=== PATIENT | female | born 1995 | race Caucasian/White ===

== ENCOUNTER 2022-03-29 06:36 | Observation (INO) | payer OTHER, SELFPAY ==
[2022-03-29] VITALS (22 sets, daily range): BP systolic 103–140; BP diastolic 53–87; PULSE 65–99; RESP 11–26; TEMP 36.1–36.8; O2SAT 91–100; BMI 46.7
--- NOTE | 2022-03-29 | PATH_ITS ---
[facility] Accession Number: [id number] . 01 Material submitted: . gallbladder - GALLBLADDER . 02 Diagnosis: Gallbladder, Cholecystectomy: Chronic cholecystitis, cholesterolosis, and cholelithiasis. The cystic duct is blocked by fragments of gallstone at gross examination. MRV 04/01/2022 1045 Local . 02 Electronically signed: . Ashia Roman MD, Pathologist NPI- [id number] . 01 Gross description: . The specimen is received in formalin, labeled gallbladder, and consists of an intact gallbladder measuring 7.1 x 3.2 x 2.5 cm, with an average wall thickness of 0.2 cm. The hepatic bed (inked blue) and serosal surfaces are intact and grossly unremarkable. The cystic duct measures 0.4 cm in diameter and, upon opening, is blocked by an aggregate of yellow bosselated calculi measuring 5.0 x 3.2 x 0.7 cm in aggregate. Also noted upon opening is a moderate amount of markedly viscous bile and hemorrhagic to bile-stained mucosa that exhibits pale yellow stippling. The specimen is representatively submitted as follows: . A1: Fundus, neck, and body with cystic duct margin en face. ([id number]) /MRV 03/30/2022 1316 Local . 02 Pathologist provided ICD-10: K81.1 . 02 CPT . 763124 Specimen Comment: A courtesy copy of this report has been sent to [phone] Performed at: 01 [facility] [address] [id number] MD Nicholas Mary MD Phone: [phone] Performed at: 02 [facility] [address] [place] [id number] MD Suad Ramos MD Phone: [phone]
--- NOTE | 2022-03-29 06:41 | ED_ITS ---
HPI - Abdominal Pain <Alphonse Marroquin DO - Last Filed: 04/01/22 07:42> General Chief Complaint: Abdominal Pain Stated Complaint: gall bladder issues Time Seen by Provider: 03/29/22 06:40 History of Present Illness HPI narrative: 26-year-old female nonsmoker with history of prediabetes, polycystic ovarian syndrome and known gallbladder disease with a scheduled elective cholecystectomy at the end of the month presents with a chief complaint of severe right upper quadrant pain with radiation to the back. She states she went to bed in her normal state of health and awoke noting the significant pain. She has nausea but denies any vomiting. She states her pain is worse with motion and improves with rest. She has been NPO since dinner last night. She is not dizzy nor weak or lightheaded. She denies any chest pain or shortness of breath. Related Data Home Medications Medication Instructions Recorded Confirmed ibuprofen 800 mg tablet 800 mg PO TID PRN Pain (Scale 03/29/22 04/01/22 Score 1-3) Previous Rx's Medication Instructions Recorded hydrocodone 5 mg-acetaminophen 325 1 tab PO Q8H PRN pain #10 tabs 03/30/22 mg tablet fluconazole 150 mg tablet 150 mg PO Q3D 2 doses #2 tabs 04/11/22 Allergies Allergy/AdvReac Type Severity Reaction Status Date / Time egg Allergy Severe Anaphylaxis Verified 04/01/22 09:10 scallops Allergy Verified 04/01/22 09:10 morphine AdvReac Intermediate Vomiting Verified 04/01/22 09:10 Review of Systems <DO Stormy Hurtado Last Filed: 04/01/22 07:42> Review of Systems Narrative: GENERAL: Denies chills, fatigue, malaise, fever, sweats. HEENT: Denies sinus pain, ear pain, sore throat, difficulty swallowing, dizziness. RESPIRATORY: Denies dyspnea, cough, wheezing, hemoptysis, sputum. CARDIOVASCULAR: Denies chest pain, palpitations, orthopnea, edema, GASTROINTESTINAL: See HPI : Denies dysuria, frequency, incontinence, hematuria, urinary retention. MUSCULOSKELETAL: denies weakness, joint pain, or bony pain SKIN: Denies rash, skin lesions, or other NEUROLOGIC: Denies weakness, headache, numbness, change in speech, confusion, seizures, incoordination. PSYCHIATRIC: No concerning psychosocial issues. 12 point review of systems is negative except for those stated above Patient History <Alphonse Marroquin DO - Last Filed: 04/01/22 07:42> Medical History Anxiety Chalazion of left eyelid Dermatofibroma of left upper extremity Morbid obesity with BMI of 45.0-49.9, adult Surgical History History of appendectomy History of hysterectomy Social History household members: spouse and children Smoking Status: Never smoker Exam <Alphonse Marroquin DO - Last Filed: 04/01/22 07:42> Narrative Exam Narrative: GENERAL: [26] year old patient appears stated age. Well-developed patient, in mild distress. HEAD: Atraumatic. Normocephalic. EYES: Pupils equal round and reactive. Extraocular motions intact. No scleral icterus. No injection or drainage. ENT: Nose without bleeding, purulent drainage. Throat without erythema, tonsillar hypertrophy or exudate. Airway patent. NECK: Trachea midline. Non tender CARDIOVASCULAR: Regular rate and rhythm without murmurs, gallops, or rubs. RESPIRATORY: Clear to auscultation. Breath sounds equal bilaterally. No wheezes, rales, or rhonchi. GASTROINTESTINAL: Abdomen soft, severe tenderness in the right upper quadrant with localized guarding nondistended. EXTREMITIES: No edema or joint tenderness. BACK: Nontender without deformity or crepitance. No flank tenderness. NEURO: AOx3. SKIN: No rash or erythema of visible areas Initial Vital Signs Initial Vital Signs: Vital Signs Temperature 97.4 F L 03/29/22 06:43 Pulse Rate 97 H 03/29/22 06:43 Respiratory Rate 03/29/22 06:43 Blood Pressure 133/76 03/29/22 06:43 Pulse Oximetry 99 03/29/22 06:43 Oxygen Delivery Method 03/29/22 06:43 <Akash Lechuga MD - Last Filed: 05/06/22 01:22> Initial Vital Signs Initial Vital Signs: Vital Signs Temperature 97.4 F L 03/29/22 06:43 Pulse Rate 97 H 03/29/22 06:43 Respiratory Rate 03/29/22 06:43 Blood Pressure 133/76 03/29/22 06:43 Pulse Oximetry 99 03/29/22 06:43 Oxygen Delivery Method 03/29/22 06:43 Course <Alphonse Marroquin DO - Last Filed: 04/01/22 07:42> Orders Ordered: Discontinued Medications Acetaminophen (Acetaminophen 325 Mg Tablet) 975 mg PO NOW ONE Stop: 03/29/22 09:59 Last Admin: 03/29/22 14:24 Dose: 975 mg Documented By: IF Hydrocodone Bitart/Acetaminophen (Hydrocodone/Acet 5/325 Tablet) 1 tab PO Q4HR PRN PRN Reason: Pain, Moderate (4-6) Last Admin: 03/30/22 13:19 Dose: 1 tab Documented By: Admin: 03/30/22 09:25 Dose: 1 tab Documented By: JENNIFER Bupivacaine HCl (Bupivacaine 0.5% (Pf) Vial) 30 ml INJ NOW ONE Stop: 03/29/22 16:14 Last Admin: 03/29/22 16:13 Dose: 30 ml Documented By: Cefazolin Sodium/Dextrose (Cefazolin 2 Gm/20 Ml Syringe) 3 gm IV NOW ONE Stop: 03/29/22 15:01 Last Admin: 03/29/22 15:48 Dose: 3 gm Documented By: REGLA Fentanyl (Fentanyl 100 Mcg/2 Ml Inj) 0 mcg IV Q5MIN PRN PRN Reason: Pain, Severe (7-10) Last Admin: 03/29/22 17:23 Dose: 25 mcg Documented By: Admin: 03/29/22 17:13 Dose: 25 mcg Documented By: PORFIRIO Gabapentin (Gabapentin 300 Mg Capsule) 300 mg PO NOW ONE Stop: 03/29/22 09:59 Last Admin: 03/29/22 14:30 Dose: 300 mg Documented By: VANESSA Hydromorphone HCl (Hydromorphone 0.5 Mg Inj) 0.5 mg IV NOW ONE Stop: 03/29/22 06:46 Last Admin: 03/29/22 06:54 Dose: 0.5 mg Documented By: KARISSA Hydromorphone HCl (Hydromorphone 0.5 Mg Inj) 0.5 mg IV Q4H PRN PRN Reason: Breakthrough pain only (8-10) Last Admin: 03/30/22 03:05 Dose: 0.5 mg Documented By: Admin: 03/29/22 23:06 Dose: 0.5 mg Documented By: Admin: 03/29/22 18:43 Dose: 0.5 mg Documented By: KETTY Lactated Ringer's (Lactated Ringers) 1,000 mls @ 1,000 mls/hr IV BOLUS ONE Stop: 03/29/22 07:44 Last Infusion: 03/29/22 14:04 Dose: 0 mls/hr Documented By: Admin: 03/29/22 06:55 Dose: 1,000 mls/hr Documented By: KARISSA Lactated Ringer's (Lactated Ringers) 1,000 mls @ 42 mls/hr IV CONT VIK Last Infusion: 03/29/22 18:02 Dose: 0 mls/hr Documented By: Admin: 03/29/22 14:56 Dose: 42 mls/hr Documented By: VANESSA Lactated Ringer's (Lactated Ringers) 1,000 mls @ 120 mls/hr IV CONT VIK Last Admin: 03/30/22 07:42 Dose: Not Given Documented By: JENNIFER Lidocaine/Epinephrine (Lidocaine 1% W/Epi) 20 ml INJ NOW ONE Stop: 03/29/22 16:13 Last Admin: 03/29/22 16:13 Dose: 20 ml Documented By: Meperidine HCl (Meperidine 50 Mg/Ml Inj) 12.5 mg IV PACUNOW PRN PRN Reason: Mild pain or shivering Naloxone HCl (Naloxone 0.4 Mg/Ml Vial) 0.2 mg IV Q2MIN PRN PRN Reason: Opiate Reversal Ondansetron HCl (Ondansetron 4 Mg/2 Ml Inj) 4 mg IV NOW ONE Stop: 03/29/22 06:46 Last Admin: 03/29/22 06:54 Dose: 4 mg Documented By: KARISSA Ondansetron HCl (Ondansetron 4 Mg/2 Ml Inj) 4 mg IV NOW PRN PRN Reason: Nausea And Vomiting Ondansetron HCl (Ondansetron 4 Mg/2 Ml Inj) 4 mg IV Q8HR PRN PRN Reason: Nausea And Vomiting Oxycodone HCl (Oxycodone Ir 5 Mg Tablet) 5 mg PO PACUNOW PRN PRN Reason: Mild or moderate pain Last Admin: 03/29/22 17:44 Dose: 5 mg Documented By: SB Scopolamine (Scopolamine 1 Patch) 1 patch TOP NOW ONE Stop: 03/29/22 09:59 Last Admin: 03/29/22 14:30 Dose: 1 patch Documented By: IF Vital Signs Vital signs: Vital Signs - 8 hr 03/29/22 06:43 Temperature 97.4 F L Pulse Rate 97 H Respiratory Rate 22 Blood Pressure 133/76 Pulse Oximetry 99 <Akash Lechuga MD - Last Filed: 05/06/22 01:22> Course Course Narrative: 7:00 a.m.. Sign out from Dr. Marroquin, patient surgeon, Dr. Matias, will be seeing patient in the department for evaluation and disposition Orders Ordered: Discontinued Medications Acetaminophen (Acetaminophen 325 Mg Tablet) 975 mg PO NOW ONE Stop: 03/29/22 09:59 Last Admin: 03/29/22 14:24 Dose: 975 mg Documented By: IF Hydrocodone Bitart/Acetaminophen (Hydrocodone/Acet 5/325 Tablet) 1 tab PO Q4HR PRN PRN Reason: Pain, Moderate (4-6) Last Admin: 03/30/22 13:19 Dose: 1 tab Documented By: Admin: 03/30/22 09:25 Dose: 1 tab Documented By: JENNIFER Bupivacaine HCl (Bupivacaine 0.5% (Pf) Vial) 30 ml INJ NOW ONE Stop: 03/29/22 16:14 Last Admin: 03/29/22 16:13 Dose: 30 ml Documented By: Cefazolin Sodium/Dextrose (Cefazolin 2 Gm/20 Ml Syringe) 3 gm IV NOW ONE Stop: 03/29/22 15:01 Last Admin: 03/29/22 15:48 Dose: 3 gm Documented By: REGLA Fentanyl (Fentanyl 100 Mcg/2 Ml Inj) 0 mcg IV Q5MIN PRN PRN Reason: Pain, Severe (7-10) Last Admin: 03/29/22 17:23 Dose: 25 mcg Documented By: Admin: 03/29/22 17:13 Dose: 25 mcg Documented By: PORFIRIO Gabapentin (Gabapentin 300 Mg Capsule) 300 mg PO NOW ONE Stop: 03/29/22 09:59 Last Admin: 03/29/22 14:30 Dose: 300 mg Documented By: IF Hydromorphone HCl (Hydromorphone 0.5 Mg Inj) 0.5 mg IV NOW ONE Stop: 03/29/22 06:46 Last Admin: 03/29/22 06:54 Dose: 0.5 mg Documented By: KARISSA Hydromorphone HCl (Hydromorphone 0.5 Mg Inj) 0.5 mg IV Q4H PRN PRN Reason: Breakthrough pain only (8-10) Last Admin: 03/30/22 03:05 Dose: 0.5 mg Documented By: Admin: 03/29/22 23:06 Dose: 0.5 mg Documented By: Admin: 03/29/22 18:43 Dose: 0.5 mg Documented By: KETTY Lactated Ringer's (Lactated Ringers) 1,000 mls @ 1,000 mls/hr IV BOLUS ONE Stop: 03/29/22 07:44 Last Infusion: 03/29/22 14:04 Dose: 0 mls/hr Documented By: Admin: 03/29/22 06:55 Dose: 1,000 mls/hr Documented By: KARISSA Lactated Ringer's (Lactated Ringers) 1,000 mls @ 42 mls/hr IV CONT VIK Last Infusion: 03/29/22 18:02 Dose: 0 mls/hr Documented By: Admin: 03/29/22 14:56 Dose: 42 mls/hr Documented By: VANESSA Lactated Ringer's (Lactated Ringers) 1,000 mls @ 120 mls/hr IV CONT [facility] Last Admin: 03/30/22 07:42 Dose: Not Given Documented By: JENNIFER Lidocaine/Epinephrine (Lidocaine 1% W/Epi) 20 ml INJ NOW ONE Stop: 03/29/22 16:13 Last Admin: 03/29/22 16:13 Dose: 20 ml Documented By: Meperidine HCl (Meperidine 50 Mg/Ml Inj) 12.5 mg IV PACUNOW PRN PRN Reason: Mild pain or shivering Naloxone HCl (Naloxone 0.4 Mg/Ml Vial) 0.2 mg IV Q2MIN PRN PRN Reason: Opiate Reversal Ondansetron HCl (Ondansetron 4 Mg/2 Ml Inj) 4 mg IV NOW ONE Stop: 03/29/22 06:46 Last Admin: 03/29/22 06:54 Dose: 4 mg Documented By: KARISSA Ondansetron HCl (Ondansetron 4 Mg/2 Ml Inj) 4 mg IV NOW PRN PRN Reason: Nausea And Vomiting Ondansetron HCl (Ondansetron 4 Mg/2 Ml Inj) 4 mg IV Q8HR PRN PRN Reason: Nausea And Vomiting Oxycodone HCl (Oxycodone Ir 5 Mg Tablet) 5 mg PO PACUNOW PRN PRN Reason: Mild or moderate pain Last Admin: 03/29/22 17:44 Dose: 5 mg Documented By: SB Scopolamine (Scopolamine 1 Patch) 1 patch TOP NOW ONE Stop: 03/29/22 09:59 Last Admin: 03/29/22 14:30 Dose: 1 patch Documented By: IF Consultations Consultation #1: Dr. Matias and is scheduling patient has at on for OR today. Has accepted patient Time: 08:19 Vital Signs Vital signs: Vital Signs - 8 hr 03/29/22 06:43 Temperature 97.4 F L Pulse Rate 97 H Respiratory Rate 22 Blood Pressure 133/76 Pulse Oximetry 99 MDM - Abdominal Pain <Alphonse Marroquin DO - Last Filed: 04/01/22 07:42> Lab Data Result diagrams: 03/29/22 06:45 03/29/22 06:45 Labs: Lab Results 03/29/22 03/29/22 03/29/22 Range/Units 06:45 06:45 07:20 WBC 6.7 (4.5-11.0) X10^3/uL RBC 4.47 (4.0-5.2) X10^6/uL Hgb 12.0 (12.0-16.0) g/dL Hct 35.9 L (36-46) % MCV 80.2 (80-100) fL MCH 26.8 (26-34) PG MCHC 33.5 (30-36) % RDW 15.2 H (11.6-14.8) % Plt Count 345 (150-400) X10^3/uL Neut % (Auto) 59.6 (50-75) % Lymph % (Auto) 30.8 (25-40) % Burnett % (Auto) 6.5 (3-14) % Eos % (Auto) 2.5 (2-4) % Baso % (Auto) 0.6 (0-2) % Neut # (Auto) 4000 (7561-4271) /uL Lymph # (Auto) 2100 (3730-0946) /uL Burnett # (Auto) 400 (0-900) /uL Eos # (Auto) 200 (0-450) /uL Baso # (Auto) 0 (0-100) /uL Sodium 139 (137-145) mmol/L Potassium 4.0 (3.4-5.1) mmol/L Chloride 104 (98-107) mmol/L Carbon Dioxide 29 (22-32) mmol/L BUN 10 (7-17) mg/dL Creatinine 0.71 (0.52-1.04) mg/dL Estimated GFR > 60 (>60) mL/min BUN/Creatinine Ratio 14.1 (6-22) Glucose 118 H (70-100) mg/dL Calcium 8.9 (8.4-10.2) mg/dL Total Bilirubin 0.2 (0.2-1.3) mg/dL AST 19 (14-36) IU/L ALT 18 (<35) IU/L Alkaline Phosphatase 47 (38-126) U/L Total Protein 6.9 (6.3-8.2) g/dL Albumin 3.9 (3.5-5.0) g/dL Globulin 3.0 (1.7-4.1) g/dL Albumin/Globulin Ratio 1.3 (1.0-2.8) SARS-CoV-2 (PCR) Negative (Negative) <Akash Lechuga MD - Last Filed: 05/06/22 01:22> Differential Diagnosis Differential diagnosis: Likely abdominal pain, constipation, pancreatitis, small bowel obstruction and other (Cholelithiasis/cholecystitis) Lab Data Labs: Lab Results 03/29/22 03/29/22 03/29/22 Range/Units 06:45 06:45 07:20 WBC 6.7 (4.5-11.0) X10^3/uL RBC 4.47 (4.0-5.2) X10^6/uL Hgb 12.0 (12.0-16.0) g/dL Hct 35.9 L (36-46) % MCV 80.2 (80-100) fL MCH 26.8 (26-34) PG MCHC 33.5 (30-36) % RDW 15.2 H (11.6-14.8) % Plt Count 345 (150-400) X10^3/uL Neut % (Auto) 59.6 (50-75) % Lymph % (Auto) 30.8 (25-40) % Burnett % (Auto) 6.5 (3-14) % Eos % (Auto) 2.5 (2-4) % Baso % (Auto) 0.6 (0-2) % Neut # (Auto) 4000 (8637-2612) /uL Lymph # (Auto) 2100 (7905-9778) /uL Burnett # (Auto) 400 (0-900) /uL Eos # (Auto) 200 (0-450) /uL Baso # (Auto) 0 (0-100) /uL Sodium 139 (137-145) mmol/L Potassium 4.0 (3.4-5.1) mmol/L Chloride 104 (98-107) mmol/L Carbon Dioxide 29 (22-32) mmol/L BUN 10 (7-17) mg/dL Creatinine 0.71 (0.52-1.04) mg/dL Estimated GFR > 60 (>60) mL/min BUN/Creatinine Ratio 14.1 (6-22) Glucose 118 H (70-100) mg/dL Calcium 8.9 (8.4-10.2) mg/dL Total Bilirubin 0.2 (0.2-1.3) mg/dL AST 19 (14-36) IU/L ALT 18 (<35) IU/L Alkaline Phosphatase 47 (38-126) U/L Total Protein 6.9 (6.3-8.2) g/dL Albumin 3.9 (3.5-5.0) g/dL Globulin 3.0 (1.7-4.1) g/dL Albumin/Globulin Ratio 1.3 (1.0-2.8) SARS-CoV-2 (PCR) Negative (Negative) Imaging Data US - abdomen: Radiologist's Impression: [address] [address] Ultrasound Report Signed Patient: Ana Garner MR#: [id number] : 1995 Acct:[id number] Age/Sex: 26 / F Date of Service: 03/29/22 Loc: ED Accession Number: [id number] ?? Procedure: US abdomen limited Ordering Provider: Alphonse Marroquin D.O. PROCEDURE: US ABDOMEN LIMITED ? INDICATIONS:? RUQ PAIN; KNOWN GALLSTONES ? TECHNIQUE:? Real-time focused scanning was performed of the abdomen, with image documentation.? ? COMPARISON:? None. ? FINDINGS:? ? Multiple small gallstones noted.? Gallbladder wall thickness is normal measuring 1.6 millimeters.? No pericholecystic fluid.? No sonographic Milner sign. ? Biliary tree is nondilated.? Common bile duct measures 5.7 millimeters. ? Pancreas is obscured by bowel gas and cannot be evaluated. ? IMPRESSION:? Cholelithiasis without sonographic evidence of cholecystitis. If there is continued clinical concern for cholecystitis, a nuclear medicine HIDA scan should be considered for further evaluation. ? ? ? Dictated by: Beatriz Santiago MD, PhD on 03/29/2022 at 7:19 ? ? Approved by: Beatriz Santiago MD, PhD on 03/29/2022 at 7:20 ? MDM Narrative Medical decision making narrative: Appropriate for admission for surgical evaluation/intervention Discharge Plan Departure Patient Disposition: Admitted as Observation Clinical Impression: Gallstones, Symptomatic cholelithiasis Admit Date/Time: 03/29/22 08:20 Admit Provider: Carter Matias
--- NOTE | 2022-03-29 06:46 | DI.US.S_ITS ---
PROCEDURE: US ABDOMEN LIMITED INDICATIONS: RUQ PAIN; KNOWN GALLSTONES TECHNIQUE: Real-time focused scanning was performed of the abdomen, with image documentation. COMPARISON: None. FINDINGS: Multiple small gallstones noted. Gallbladder wall thickness is normal measuring 1.6 millimeters. No pericholecystic fluid. No sonographic Milner sign. Biliary tree is nondilated. Common bile duct measures 5.7 millimeters. Pancreas is obscured by bowel gas and cannot be evaluated. IMPRESSION: Cholelithiasis without sonographic evidence of cholecystitis. If there is continued clinical concern for cholecystitis, a nuclear medicine HIDA scan should be considered for further evaluation. Dictated by: Beatriz Santiago MD, PhD on 03/29/2022 at 7:19 Approved by: Beatriz Santiago MD, PhD on 03/29/2022 at 7:20
[2022-03-29 06:52] LABS: Add Manual Diff / Slide Review NO; Basophils Absolute Auto 0 /uL (0-100); Basophils Percent Auto 0.6 % (0-2); Eosinophils Absolute Auto 200 /uL (0-450); Eosinophils Percent Auto 2.5 % (2-4); Hematocrit 35.9 % (36-46); Lymphocytes Absolute Auto 2100 /uL (1100-4500); Lymphocytes Percent Auto 30.8 % (25-40); Mean Corpuscular HGB Conc 33.5 % (30-36); Mean Corpuscular Hemoglobin 26.8 PG (26-34); Mean Corpuscular Volume 80.2 fL (80-100); Monocytes Absolute Auto 400 /uL (0-900); Monocytes Percent Auto 6.5 % (3-14); Neutrophils Absolute Auto 4000 /uL (1500-7000); Neutrophils Percent Auto 59.6 % (50-75); Platelet Count 345 X10^3/uL (150-400); Red Blood Cell Count 4.47 X10^6/uL (4.0-5.2); Red Cell Distribution Width 15.2 % (11.6-14.8); White Blood Cell Count 6.7 X10^3/uL (4.5-11.0)
[2022-03-29] MEDS: ONDANSETRON 4 MG/2 ML INJ IV (06:54)
[2022-03-29] MEDS: HYDROMORPHONE 0.5 MG INJ IV ×3 (06:54→23:06)
[2022-03-29] MEDS: LACTATED RINGERS 1,000 ML 1000 ML IV (06:55)
[2022-03-29 07:03] LABS: Alanine Aminotransferase 18 IU/L (<35); Albumin 3.9 g/dL (3.5-5.0); Albumin Globulin Ratio 1.3 (1.0-2.8); Alkaline Phosphatase 47 U/L (38-126); Aspartate Aminotransferase 19 IU/L (14-36); BUN Creatinine Ratio 14.1 (6-22); Bilirubin Total 0.2 mg/dL (0.2-1.3); Blood Urea Nitrogen 10 mg/dL (7-17); Calcium 8.9 mg/dL (8.4-10.2); Carbon Dioxide 29 mmol/L (22-32); Chloride 104 mmol/L (98-107); Estimated Glomerular Filt Rate > 60 mL/min (>60); Glucose 118 mg/dL (70-100); HEMOLYSIS < 15 (0-50); Sodium 139 mmol/L (137-145); Total Protein 6.9 g/dL (6.3-8.2)
[2022-03-29 07:57] LABS: COVID19 -Nasal RAPID Negative (Negative)
[2022-03-29] MEDS: ACETAMINOPHEN 325 MG TABLET 975 MG PO (14:24)
[2022-03-29] MEDS: GABAPENTIN 300 MG CAPSULE PO (14:30)
[2022-03-29] MEDS: SCOPOLAMINE 1 PATCH TOP (14:30)
[2022-03-29] MEDS: LACTATED RINGERS 1,000 ML 42 ML IV (14:56)
--- NOTE | 2022-03-29 15:21 | P.HP_ITS ---
History of Present Illness History of Present Illness Date Patient Seen: 03/29/22 Time Patient Seen: 15:21 Chief complaint: gallbladder issues Narrative: Ana is a 26-year-old woman who was scheduled for a laparoscopic cholecystectomy next week but her pain increased and she came to the ER last night. Ultrasound showed gallstones without acute cholecystitis and her labs are normal. Patient History Medical History (Updated 03/29/22 @ 12:34 by Amada Schroeder MD) Anxiety Chalazion of left eyelid Dermatofibroma of left upper extremity Morbid obesity with BMI of 45.0-49.9, adult Surgical History History of appendectomy History of hysterectomy Family & Social History Social History: household members spouse,children Prior Living Arrangements House Safety & Behavioral: Feels Safe in Current Yes Environment Tobacco & Substance use: Smoking Status Never smoker alcohol intake frequency holiday/special occasion Substance Use Type does not use Meds Home Medications and Allergies Home Medications Medication Instructions Recorded Confirmed Type ibuprofen 800 mg tablet 800 mg PO TID PRN 03/29/22 03/29/22 History Allergies Allergy/AdvReac Type Severity Reaction Status Date / Time morphine AdvReac Intermediate Vomiting Verified 03/29/22 14:18 Exam Vital Signs (past 8 hours): - 03/29/22 07:30 03/29/22 07:31 03/29/22 08:00 Temperature Pulse Rate 81 81 75 Respiratory Rate Blood Pressure 126/58 L Pulse Oximetry 100 100 100 03/29/22 08:01 03/29/22 08:30 03/29/22 09:00 Temperature Pulse Rate 74 65 68 Respiratory Rate Blood Pressure 121/68 114/57 L 109/58 L Pulse Oximetry 100 98 100 03/29/22 09:30 03/29/22 14:04 03/29/22 14:55 Temperature 98.0 F Pulse Rate 68 70 99 H Respiratory Rate 18 16 Blood Pressure 118/70 120/79 140/87 Pulse Oximetry 100 99 100 Oxygen Delivery Method Room Air Resp Effort & Inspection: normal respiratory effort GI Palpation: soft and tender (Right upper quadrant) Objective Labs Result Diagrams: 03/29/22 06:45 03/29/22 06:45 Labs: Laboratory Results - last 24 hr 03/29/22 03/29/22 03/29/22 06:45 06:45 07:20 WBC 6.7 RBC 4.47 Hgb 12.0 Hct 35.9 L MCV 80.2 MCH 26.8 MCHC 33.5 RDW 15.2 H Plt Count 345 Neut % (Auto) 59.6 Lymph % (Auto) 30.8 [place] % (Auto) 6.5 Eos % (Auto) 2.5 Baso % (Auto) 0.6 Neut # (Auto) 4000 Lymph # (Auto) 2100 [place] # (Auto) 400 Eos # (Auto) 200 Baso # (Auto) 0 Sodium 139 Potassium 4.0 Chloride 104 Carbon Dioxide 29 BUN 10 Creatinine 0.71 Estimated GFR > 60 BUN/Creatinine Ratio 14.1 Glucose 118 H Calcium 8.9 Total Bilirubin 0.2 AST 19 ALT 18 Alkaline Phosphatase 47 Total Protein 6.9 Albumin 3.9 Globulin 3.0 Albumin/Globulin Ratio 1.3 SARS-CoV-2 (PCR) Negative Assessment & Plan Assessment and plan (1) Symptomatic cholelithiasis: Status: Acute Plan 26-year-old woman in need of a laparoscopic cholecystectomy for symptomatic cholelithiasis. We reviewed the risks and benefits and she would like to proceed. Time Spent With Patient Critical Care time: I spent a total of [] minutes of critical care time on this patient's care today ; this time is exclusive of procedural time.
[2022-03-29] MEDS: CEFAZOLIN 2 GM/20 ML SYRINGE 3 GM IV (15:48)
--- NOTE | 2022-03-29 16:06 | SUR.OPER ---
Supine on padded OR bed, head on pillow, safety belt at thigh, left arm padded and tucked at side. Right arm secured on padded arm board <90 degrees abduction. Legs uncrossed. Padded footboard in place. Tape over blanket to secure lower legs.
[2022-03-29] MEDS: BUPIVACAINE 0.5% (PF) VIAL 30 ML INJ (16:13)
[2022-03-29] MEDS: LIDOCAINE 1% W/EPI 20 ML INJ (16:13)
--- NOTE | 2022-03-29 16:59 | PM.OP.1 ---
Operative Date/Time/Diagnoses Date of procedure: 03/29/22 Time of procedure: 16:59 Pre-op diagnosis: Gallstones Post-op diagnosis: same Procedure & Clinicians Procedure: Laparoscopic cholecystectomy Same procedure as scheduled: Yes Surgeon: Carter Matias Operative Notes Procedure in detail: The patient was given preoperative antibiotic. The patient was brought to the operating room, placed on the table in the supine position. General endotracheal anesthesia was induced. The abdomen was prepped and draped. A time-out was performed. We made a 1 cm infraumbilical incision. We dissected down to the base of the umbilical stalk using cautery. We grasped the umbilical stalk with a Eloisa clamp to elevate the abdominal wall. We scored the fascia in the midline with cautery 1 cm. We pierced the peritoneum with a Peon clamp. The Abdelrahman port was placed and the abdomen was insufflated to 15 mmHg. A 5 mm 30 degree laparoscopic was inserted. There was no evidence of any injury from the entry. Next, we placed 5 mm ports in the subxiphoid position and right upper quadrant at the midclavicular line and anterior axillary line. The patient was then positioned in reverse Trendelenburg and the table was tilted to the left. The gallbladder was quite intrahepatic due to the patient's hepatomegaly. The gallbladder was grasped at the dome and retracted cephalad. We then dissected the cystic structures with a combination of hook cautery and blunt dissection. We obtained a critical view. We placed clips on the cystic duct and artery and divided the cystic duct and artery sharply between the clips. The gallbladder was then dissected off the liver and placed in a specimen retrieval bag. We irrigated the right upper quadrant and all the aspirate returned clear. We then removed the 5 mm ports under direct vision we removed the Abdelrahman port. We then injected some local into the fascia and closed the fascia with 3 interrupted 0 Vicryl sutures. The skin incisions were closed with 4 Monocryl and Steri-Strips were applied. Band-Aids were applied over the Steri-Strips. EBL: 20 mL Specimen: Gallbladder Post-operative Condition: stable Disposition: PACU
[2022-03-29] MEDS: fentaNYL 100 MCG/2 ML INJ IV ×2 (17:13→17:23)
--- NOTE | 2022-03-29 17:29 | SUR.PHASEI ---
Patient states that pain is improving, talking, oriented, report given to CARLO Koroma.
[2022-03-29] MEDS: OXYCODONE IR 5 MG TABLET PO (17:44)
--- NOTE | 2022-03-29 22:27 | PC.NURSE ---
Pt incision at umbillicus open up. Charge nurse informed, applied clean pressure dressing, bleeding stopped. Called Dr Matias's nurse, in surgery, left message with him. Will follow up.
[2022-03-30] VITALS: BP 111/54; PULSE 88; RESP 18; TEMP 36.4; O2SAT 98
--- NOTE | 2022-03-30 02:41 | PC.NURSE ---
Call from Dr Matias,discussed patient's unbillical incision dehissing and the application of a pressure dressing. He said pressure dressing was good and he would look at it in the morning. Will continue to monitor.
[2022-03-30] MEDS: HYDROMORPHONE 0.5 MG INJ IV (03:05)
[2022-03-30 05:25] VITALS: BP 107/52; PULSE 85; RESP 18; TEMP 36.7; O2SAT 96
[2022-03-30 08:30] VITALS: BP 125/77; PULSE 86; RESP 18; TEMP 36.4; O2SAT 98
[2022-03-30] MEDS: HYDROCODONE/ACET 5/325 TABLET 1 TAB PO ×2 (09:25→13:19)
[2022-03-30 11:40] VITALS: BP 100/51; PULSE 82; RESP 16; TEMP 36.3; O2SAT 97
== END 2022-03-30 15:20 | disposition home or self-care (01) ==
LOC: ED 08:20 → AC 08:31
PROVIDERS: Emergency Medicine; Admitting Provider Surgery; Emergency Provider Emergency Medicine; PCP Family Medicine; Referring Provider Emergency Medicine; Visit Provider Surgery
PROC: 0FT44ZZ Resection of Gallbladder, Percutaneous Endoscopic Approach (ICD-10-PCS; CPT 47562; principal; 2022-03-29 16:45)
DX: K80.10 Calculus of gallbladder with chronic cholecystitis without obstruction (principal); Z20.822 Contact with and (suspected) exposure to COVID-19; E66.01 Morbid (severe) obesity due to excess calories; Z68.42 Body mass index [BMI] 45.0-49.9, adult; F41.9 Anxiety disorder, unspecified
CPT/HCPCS: 47562; 36415; 76705; 80053; 82962; 85025; 87635; 96361; 96374; 96375; 96376; 99219; 99284; C9803; G0378; J0330; J0690; J1100; J1170; J1885; J2250; J2405; J2704; J3010

== ENCOUNTER 2022-04-11 16:18 | Emergency (ER) | payer OTHER, SELFPAY ==
[2022-03-29 18:26] VITALS: BMI 46.7
[2022-04-11 16:31] VITALS: BP 164/84; PULSE 73; RESP 16; TEMP 36.6; O2SAT 95; BMI 45.2
--- NOTE | 2022-04-11 19:30 | ED_ITS ---
HPI - Abdominal Pain General Chief Complaint: Abdominal Pain Stated Complaint: Infection, Post Gallbladder Surgery Time Seen by Provider: 04/11/22 18:13 History of Present Illness HPI narrative: 26-year-old female nonsmoker with recent lap cholecystectomy presents for evaluation of the umbilical incision site. She states that evidence of dehiscence of was present soon after the surgery initially with bleeding which has obviously since stopped. She is pending close contact with the surgeon and after their meetings and conversations it was determined that delayed closure would not be performed. She presents today because of the sensation that the incision has become angry, it is still slightly open and has begun draining cloudy fluid. There is no surrounding redness or deep pain. She denies systemic findings such as fever, chills nor nausea or vomiting. She is having no issues with bowel movements or urination. She has an appointment for follow- up on Monday Related Data Home Medications Medication Instructions Recorded Confirmed ibuprofen 800 mg tablet 800 mg PO TID PRN 03/29/22 04/01/22 Previous Rx's Medication Instructions Recorded hydrocodone 5 mg-acetaminophen 325 1 tab PO Q8H PRN #10 tab 03/30/22 mg tablet cephalexin 500 mg capsule 500 mg PO Q6H 7 Days #28 cap 04/11/22 fluconazole 150 mg tablet 150 mg PO Q3D #2 tab 04/11/22 Allergies Allergy/AdvReac Type Severity Reaction Status Date / Time egg Allergy Severe Anaphylaxis Verified 04/01/22 09:10 scallops Allergy Verified 04/01/22 09:10 morphine AdvReac Intermediate Vomiting Verified 04/01/22 09:10 Review of Systems Review of Systems Narrative: GENERAL: Denies chills, fatigue, malaise, fever, sweats. HEENT: Denies sinus pain, ear pain, sore throat, difficulty swallowing, dizziness. RESPIRATORY: Denies dyspnea, cough, wheezing, hemoptysis, sputum. CARDIOVASCULAR: Denies chest pain, palpitations, orthopnea, edema, GASTROINTESTINAL: Denies nausea, vomiting, abdominal pain, diarrhea, constipation, melena. : Denies dysuria, frequency, incontinence, hematuria, urinary retention. MUSCULOSKELETAL: denies weakness, joint pain, or bony pain SKIN: See HPI NEUROLOGIC: Denies weakness, headache, numbness, change in speech, confusion, seizures, incoordination. PSYCHIATRIC: No concerning psychosocial issues. 12 point review of systems is negative except for those stated above Patient History Medical History Anxiety Chalazion of left eyelid Dermatofibroma of left upper extremity Morbid obesity with BMI of 45.0-49.9, adult Surgical History History of appendectomy History of hysterectomy Social History household members: spouse and children Smoking Status: Never smoker Smoking Status: Never smoker alcohol intake frequency: holidays/special occasions only Substance Use Type: does not use Exam Narrative Exam Narrative: GEN: AOx3 and in mild distress EYES: Pupils are equal, round, and reactive to light and accommodation. Extraoccular muscles are intact bilaterally. There is no subconjunctival hemorrhage or exudate. CHEST: Lungs are clear to auscultation bilaterally and free of wheezes, rales, or rhonchi. Heart rate is regular rhythm, there are no murmurs, clicks, rubs, or gallops. There is no chest wall tenderness. ABD: Incision inferior to umbilicus is dehisced, healing it has begun and gran ulation tissue is noted. There is some dried crusting around her umbilical region, very minimal if any surrounding erythema, no induration, fluctuance or pain on deep palpation to suggest deep infection. Wound culture obtained. Abdomen is otherwise soft and nontender. There is no guarding or rebound. Bowel sounds are normal in all 4 quadrants. There is no mass or organomegaly. EXT: Full painless ROM of all extremities with no loss of sensation or strength. SKIN: Warm, pink, and dry. No erythema or rash Initial Vital Signs Initial Vital Signs: Vital Signs Temperature 97.8 F 04/11/22 16:31 Pulse Rate 73 04/11/22 16:31 Respiratory Rate 16 04/11/22 16:31 Blood Pressure 164/84 H 04/11/22 16:31 Pulse Oximetry 95 04/11/22 16:31 Course Orders Ordered: ED Orders 04/11/22 19:26 Wound Culture and Gram Stain Stat 04/11/22 19:35 Wound Culture and Gram Stain Stat Vital Signs Vital signs: Vital Signs - 8 hr 04/11/22 16:31 Temperature 97.8 F Pulse Rate 73 Respiratory Rate 16 Blood Pressure 164/84 H Pulse Oximetry 95 MDM - Abdominal Pain MDM Narrative Medical decision making narrative: Patient presents for evaluation of dehisced wound and concern for infection. There is no evidence of deep or large infection, much of history and physical is reassuring, however she has just started draining, culture obtained and will treat with antibiotics. No indication for closure at this point, she has follow-up scheduled for Monday, may elect to follow up with her primary instead. We discussed the pros and cons of this approach. She has been given return precautions and questions answered to her apparent satisfaction Discharge Plan Departure Patient Disposition: Home Clinical Impression: Wound dehiscence Instructions: DI for Wound Infection Activity Restrictions/Additional Instructions: *You have been diagnosed with [surgical wound dehiscence with likely early infection. As we discussed much ear exam is very reassuring and there is no evidence of a deep infection such as abscess. We obtained a wound culture and the results will be back in a few days, if it suggests a different antibiotic might be needed we will call you *What to do: *Please continue to take your regular medications as directed. [ x] New medication prescriptions sent to your pharmacy: [[facility] ] [ ] New medication written as a paper prescription [ ] No new medications given *Please follow up with your primary care provider in 2-3 days, call for an appointment. Let them know you were seen in the Emergency Department and that we ask that you be seen in follow up. We will electronically transmit a record of today's note if your PCP is in our system *Please follow up with Dr. Matias on Monday as planned *If you do not have a primary care provider please contact the [facility] Resource line at [phone]. They will ask some questions about your medical history and help get you set up with a doctor in the community. *Return to Emergency Department if you should have any new, worsening or concerning symptoms, such as [fever greater than 101 F, shaking chills, worsening pain, persistent vomiting or other bothersome symptoms] Prescriptions: New fluconazole 150 mg tablet 150 mg PO Q3D Qty: 2 0RF Rx Instructions: may repeat second dose 72 hrs after first dose if symptoms persist cephalexin 500 mg capsule 500 mg PO Q6H 7 Days Qty: 28 0RF No Action ibuprofen 800 mg Tablet 800 mg PO TID PRN (Reason: Pain (Scale Score 1-3)) 0RF hydrocodone-acetaminophen 5-325 mg tablet 1 tab PO Q8H PRN (Reason: pain) Qty: 10 0RF Referrals: Alanis Jalloh MD [Primary Care Provider] -
[2022-04-11 19:40] VITALS: BP 121/69; PULSE 105; O2SAT 100
== END 2022-04-11 19:45 | disposition home or self-care (01) ==
PROVIDERS: Emergency Provider Emergency Medicine; PCP Student in an Organized Health Care Education/Training Program
DX: T81.30XA Disruption of wound, unspecified, initial encounter (principal)
CPT/HCPCS: 87070; 87075; 87205; 99281; 99282